=== PATIENT | female | born 1950 | race Caucasian/White ===

== ENCOUNTER 2018-10-02 11:25 | Observation (INO) ==
--- NOTE | 2018-10-02 11:52 | Emergency Department Note ---
Disposition Clinical Impression: Dog bite of left hand, Cellulitis of left hand Disposition: Admitted As Inpatient Condition: Good General Adult HPI - General Chief complaint: ED Animal Bite Stated complaint: Canine Bite Time Seen by Provider: 10/02/18 11:45 Source: patient - History of Present Illness Pain Scale: 7 - Related Data Home Medications Medication Instructions Recorded Confirmed Amlodipine Besylate 5 mg PO DAILY 10/02/18 10/02/18 Lisinopril [Zestril] 40 mg PO DAILY 10/02/18 10/02/18 Metoprolol Succinate [Kapspargo 100 mg PO DAILY 10/02/18 10/02/18 Sprinkle] RX: Amoxicillin/Clavulanate 1 tab PO BID 10/02/18 10/02/18 [Augmentin] RX: Furosemide [Lasix] 40 mg PO DAILY 10/02/18 10/02/18 RX: LORazepam [Ativan] 0.5 mg PO QAM 10/02/18 10/02/18 RX: LORazepam [Ativan] 1 mg PO QPM 10/02/18 10/02/18 RX: Mupirocin [Bactroban Oint] 1 appl TP BID 10/02/18 10/02/18 Allergies Allergy/AdvReac Type Severity Reaction Status Date / Time No Known Allergies Allergy Verified 10/02/18 11:42 Past Medical History - Past Medical History Medical history: Reports: hypertension, renal disease - Social History Smoking Status: Never smoker Smokeless Tobacco Status: No Alcohol use: Reports: none Physical Exam - General General appearance: alert Course Vital Signs Temperature 98 F 10/02/18 11:42 Pulse Rate 75 10/02/18 11:42 Respiratory Rate 20 10/02/18 11:42 Blood Pressure 168/94 10/02/18 11:42 O2 Sat by Pulse Oximetry 92 10/02/18 11:42 Temperature 98 F 10/02/18 11:47 Pulse Rate 73 10/02/18 13:04 Respiratory Rate 17 10/02/18 13:04 Blood Pressure 162/96 10/02/18 13:04 O2 Sat by Pulse Oximetry 96 10/02/18 13:04 Oxygen Delivery Oxygen Delivery Room Air Medical Decision Making - Lab Data Result diagrams: 10/02/18 12:20 10/02/18 12:20 Lab Results 12/02/18 12/02/18 Range/Units 12:20 12:20 WBC 7.6 (4.3-11.1) K/mcL RBC 4.82 (3.82-4.97) M/mcL Hgb 13.9 (11.5-15.4) g/dL Hct 43.1 (35.3-44.9) % MCV 89.4 (83.0-100.0) fL MCH 28.8 (28.0-33.3) pg MCHC 32.3 (31.6-35.5) g/dL RDW 13.6 (11.5-14.5) % Plt Count 232 (140-400) K/mcL MPV 9.6 (9.4-12.4) fL Immature Gran % 0.3 (0-4) % Seg Neutrophils % 76.6 % Lymphocytes % 13.2 % Monocytes % 8.3 % Eosinophils % 0.9 % Basophils % 0.7 % Neutrophils # 5.8 (1.6-8.9) K/mcL Lymphocytes # 1.0 (0.6-4.6) K/mcL Monocytes # 0.6 (0.0-1.3) K/mcL Eosinophils # 0.1 (0.0-0.6) K/mcL Basophils # 0.1 (0.0-0.2) K/mcL Sodium 139 (136-145) mEq/L Potassium 4.0 (3.5-5.1) mEq/L Chloride 107 (98-107) mEq/L Carbon Dioxide 22 L (23-29) mEq/L BUN 37 H (8-23) mg/dL Creatinine 1.82 H (0.60-1.20) mg/dL Est GFR ( Amer) 34 L (> 60) Est GFR (Non-Af Amer) 28 L (> 60) BUN/Creatinine Ratio 20 (6-26) Glucose 121 H (70-105) mg/dL Calculated Osmolality 298 (280-300) Calcium 9.6 (8.6-10.3) mg/dL Attestation Statement - Attestation Attestation: I examined this patient and my medical decision-making was reviewed with the Resident Physician. I agree with the documented findings, disposition and treatment plan as described except to the extent set forth below. [id number] time provided Patient arrives after a dog bite to her left hand sustained 5 days ago. She was seen at the urgent care and prescribed augmentic and then subsequently trimethoprim sulfamethoxazole. Symptoms persist. She does have a localized cellulitis from a bite wound to the dorsum of her left hand. She does not appear systemically ill
[2018-10-02] MEDS ORDERED: Ampicillin/Sulbactam 1,500 MG in 0.9 % Sodium Chloride Mini Bag 100 ML IVPB ONE (11:59)
--- NOTE | 2018-10-02 12:06 | Emergency Department Note ---
Disposition Clinical Impression: Cellulitis of left hand Dog bite of left hand Qualifiers: Encounter type: initial encounter Qualified Code(s): S61.452A - Open bite of left hand, initial encounter Disposition: Admitted As Inpatient Condition: Good Referrals: Zachary Oconnor DO [Primary Care Provider] - Forms: ED Satisfaction Letter Time of Disposition: 13:12 Animal Bite HPI - General Chief Complaint: ED Animal Bite Stated Complaint: Canine Bite Time Seen by Provider: 10/02/18 11:45 Source: patient Mode of arrival: ambulatory Limitations: no limitations Nursing Notes Reviewed: Yes Vital Signs Reviewed: Yes - History of Present Illness HPI Narrative: Patient is a 68-year-old female, otherwise healthy. She presents today due to concern for left hand dog bite. Patient states that she was by her own dog, immunizations for the dog was up-to-date. This occurred about a week ago. Patient states that she was seen 5 days ago at urgent care and was prescribed Augmentin for left hand dog bite. She states that she took this medication without any missed doses, despite this had worsening redness, worsening pain, worsening swelling. She does note that she also had x-ray imaging at that time that was negative for fracture in the hand. She was seen again approximately 2- 3 days ago and was prescribed an additional course of Bactrim to take in add ition to Augmentin. She states that despite taking this medication, she has continued worsening pain, redness, swelling. Denies any other systemic symptoms such as nausea, vomiting, fevers, abdominal pain, diarrhea, chest pain, shortness of breath. Denies any numbness, tingling, weakness. Patient is right-handed. - Related Data Home Medications Medication Instructions Recorded Confirmed Amlodipine Besylate 5 mg PO DAILY 10/02/18 10/02/18 Amoxicillin/Clavulanate [Augmentin] 1 tab PO BID 10/02/18 10/02/18 Furosemide [Lasix] 40 mg PO DAILY 10/02/18 10/02/18 LORazepam [Ativan] 0.5 mg PO QAM 10/02/18 10/02/18 LORazepam [Ativan] 1 mg PO QPM 10/02/18 10/02/18 Lisinopril [Zestril] 40 mg PO DAILY 10/02/18 10/02/18 Metoprolol Succinate [Kapspargo 100 mg PO DAILY 10/02/18 10/02/18 Sprinkle] Mupirocin [Bactroban Oint] 1 appl TP BID 10/02/18 10/02/18 Allergies Allergy/AdvReac Type Severity Reaction Status Date / Time No Known Allergies Allergy Verified 10/02/18 11:42 All systems ED: reviewed and negative except as stated. Constitutional: Denies: fever Cardiovascular: Denies: chest pain Respiratory: Denies: cough, dyspnea Gastrointestinal: Denies: abdominal pain, nausea, vomiting Genitourinary: Denies: urgency, dysuria Integumentary: Reports: lesions. Denies: rash Neurological: Denies: headache, weakness, numbness, paresthesias Past Medical History - Past Medical History Attestation: Yes The following information was validated with the patient. Source: patient Medical history: Reports: hypertension, renal disease - Social History Smoking Status: Never smoker Smokeless Tobacco Status: No Alcohol use: Reports: none Physical Exam - General Limitations: no limitations General appearance: alert - Head Head exam: atraumatic, normocephalic, normal inspection - Eye Eye exam: Present: normal appearance, PERRL, EOMI - ENT ENT exam: normal exam, normal oropharynx, mucous membranes moist - Neck Neck exam: Present: normal inspection, full ROM, trachea midline - Chest Chest inspection: Present: normal inspection, symmetric chest wall rise - Respiratory Respiratory exam: Present: normal lung sounds bilaterally - Cardiovascular Cardiovascular exam: Present: regular rate, normal rhythm, normal heart sounds - Abdominal Exam Abdominal exam: Present: soft, Non-Tender. Absent: tenderness, distention, guarding, rebound, rigidity - Extremities Exam Extremities exam: Present: full ROM, other (2 puncture wounds on the dorsal aspect of the left hand, 1 approximately 0.5 cm on the distal aspect of the fifth metacarpal, one near the proximal aspect of the second metacarpal measuring approximately 0.5 cm. Both have associated erythema. There is also additional swelling on entire aspect of the dorsal left hand with some mild erythema tracking up to the distal dorsal wrist. Still has full rang of motion of the digits, no fusiform swelling of the digits. Neurovascularly intact left upper extremity.). Absent: pedal edema - Neurological Exam Neurological exam: Present: alert, oriented X3. Absent: motor sensory deficit - Psychiatric Psychiatric exam: Present: normal affect, normal mood - Skin Skin exam: Present: warm, dry, other (see extremity section above ) Course Course Narrative: Currently concern for failed outpatient treatment despite Augmentin and Bactrim antibiotic regimen. CBC and BMP, blood cultures ordered. Patient was ordered Unasyn. I initially ordered vancomycin but patient refused to receive this medication due to history of chronic kidney disease. We replaced this medication with clindamycin. After blood work, will admit the patient for further care. Imaging reviewed from urgent care visit, patient does not have a fracture on x-ray imaging of the left hand. 13:11 no major lab abnormalities. Patient was accepted to hospitalist for admission. Of note, patient's tetanus was updated when she was seen at urgent care last week. Vital Signs Temperature 98 F 10/02/18 11:42 Pulse Rate 75 10/02/18 11:42 Respiratory Rate 20 10/02/18 11:42 Blood Pressure 168/94 10/02/18 11:42 O2 Sat by Pulse Oximetry 92 10/02/18 11:42 Temperature 98 F 10/02/18 11:47 Pulse Rate 73 10/02/18 13:04 Respiratory Rate 17 10/02/18 13:04 Blood Pressure 162/96 10/02/18 13:04 O2 Sat by Pulse Oximetry 96 10/02/18 13:04 Oxygen Delivery Oxygen Delivery Room Air Animal Bite - MDM Narrative Medical decision making narrative: Currently concern for failed outpatient treatment despite Augmentin and Bactrim antibiotic regimen. CBC and BMP, blood cultures ordered. Patient was ordered Unasyn. I initially ordered vancomycin but patient refused to receive this medication due to history of chronic kidney disease. We replaced this medication with clindamycin. After blood work, will admit the patient for further care. Imaging reviewed from urgent care visit, patient does not have a fracture on x-ray imaging of the left hand. 13:11 no major lab abnormalities. Patient was accepted to hospitalist for admission. Of note, patient's tetanus was updated when she was seen at urgent care last week. - Medical Records Medical records reviewed: Yes I reviewed the patient's medical records. - Lab Data Result diagrams: 10/02/18 12:20 10/02/18 12:20 Lab Results 10/02/18 10/02/18 Range/Units 12:20 12:20 WBC 7.6 (4.3-11.1) K/mcL RBC 4.82 (3.82-4.97) M/mcL Hgb 13.9 (11.5-15.4) g/dL Hct 43.1 (35.3-44.9) % MCV 89.4 (83.0-100.0) fL MCH 28.8 (28.0-33.3) pg MCHC 32.3 (31.6-35.5) g/dL RDW 13.6 (11.5-14.5) % Plt Count 232 (140-400) K/mcL MPV 9.6 (9.4-12.4) fL Immature Gran % 0.3 (0-4) % Seg Neutrophils % 76.6 % Lymphocytes % 13.2 % Monocytes % 8.3 % Eosinophils % 0.9 % Basophils % 0.7 % Neutrophils # 5.8 (1.6-8.9) K/mcL Lymphocytes # 1.0 (0.6-4.6) K/mcL Monocytes # 0.6 (0.0-1.3) K/mcL Eosinophils # 0.1 (0.0-0.6) K/mcL Basophils # 0.1 (0.0-0.2) K/mcL Sodium 139 (136-145) mEq/L Potassium 4.0 (3.5-5.1) mEq/L Chloride 107 (98-107) mEq/L Carbon Dioxide 22 L (23-29) mEq/L BUN 37 H (8-23) mg/dL Creatinine 1.82 H (0.60-1.20) mg/dL Est GFR ( Amer) 34 L (> 60) Est GFR (Non-Af Amer) 28 L (> 60) BUN/Creatinine Ratio 20 (6-26) Glucose 121 H (70-105) mg/dL Calculated Osmolality 298 (280-300) Calcium 9.6 (8.6-10.3) mg/dL - Radiology Data Radiology results reviewed: Yes I reviewed the patient's radiology results.
[2018-10-02] MEDS ORDERED: Clindamycin 900 MG/50 ML 900 MG/50 ML IV.SOLN IVPB ONE (12:23)
[2018-10-02 12:32] LABS: Basophils # 0.1 K/mcL (0.0-0.2); Basophils % 0.7 %; Eosinophils # 0.1 K/mcL (0.0-0.6); Eosinophils % 0.9 %; Hematocrit 43.1 % (35.3-44.9); Hemoglobin 13.9 g/dL (11.5-15.4); Immature Granulocytes % 0.3 % (0-4); Lymphocytes % 13.2 %; Mean Corpuscular HGB Conc 32.3 g/dL (31.6-35.5); Mean Corpuscular Hemoglobin 28.8 pg (28.0-33.3); Mean Corpuscular Volume 89.4 fL (83.0-100.0); Mean Platelet Volume 9.6 fL (9.4-12.4); Monocytes # 0.6 K/mcL (0.0-1.3); Monocytes % 8.3 %; Neutrophils # 5.8 K/mcL (1.6-8.9); Platelet Count 232 K/mcL (140-400); Red Blood Count 4.82 M/mcL (3.82-4.97); Red Cell Distribution Width 13.6 % (11.5-14.5); Segmented Neutrophils % 76.6 %
[2018-10-02 12:57] LABS: Calcium 9.6 mg/dL (8.6-10.3)
[2018-10-02] MEDS ORDERED: Naloxone 0.4 MG/ML INJ IVP PRN (13:35)
[2018-10-02] MEDS ORDERED: Vancomycin 1,750 MG in 0.9 % Sodium Chloride 250 ML IVPB SCH (14:00)
--- NOTE | 2018-10-02 16:32 | Internal Med History&Physical ---
Date of Encounter: 10/02/18 Time of Encounter: 16:24 Internal Medicine - H&P: HPI Chief complaint: pain, swelling and erythema of the left hand Plans for Post Hospital Care: Home History of present illness: Ms. Read is a 68 year old female PMH of CKD, and HTN patient presented to the ED due a week history of edema, pain and erythema in her left hand. Patient reports that about a week ago she was bitten her her dog in the left hand accidentally, for which she decided to go to an urgent care where she got a tetanus shot and was prescribed Augmentin, which she took for about three days with minimal relief of her symptoms. On Wednesday due to persistence of the pain and edema on her left hand she returned to the urgent care and was started on Bactrim and was told that if she did not see any improvement in the following days she should go to the ED, patient decided to come to the ED today because she continues to have stabbing/sharp 8/10 pain, edema, erythema and warmth in the left hand. She denies fever/chills, nausea, vomiting, abdominal pain or loose stool. Past Med Surg Social Fam HX - Past Medical History Medical history: hypertension, renal disease - Social History Smoking Status: Never smoker Smokeless Tobacco Status: No Alcohol use: none Internal Medicine - H&P: Meds Amlodipine Besylate 5 mg PO DAILY 10/02/18 [History] Amoxicillin/Clavulanate [Augmentin] 1 tab PO BID 10/02/18 [History] Furosemide [Lasix] 40 mg PO DAILY 10/02/18 [History] LORazepam [Ativan] 0.5 mg PO QAM 10/02/18 [History] LORazepam [Ativan] 1 mg PO QPM 10/02/18 [History] Lisinopril [Zestril] 40 mg PO DAILY 10/02/18 [History] Metoprolol Succinate [Kapspargo Sprinkle] 100 mg PO DAILY 10/02/18 [History] Mupirocin [Bactroban Oint] 1 appl TP BID 10/02/18 [History] Allergy/AdvReac Type Severity Reaction Status Date / Time No Known Allergies Allergy Verified 10/02/18 11:42 All Systems PM: A 10-system review of systems was performed and is negative for pertinent findings except as documented above in the HPI. - Constitutional Constitutional: no chills, no fever(s), no lethargy, no malaise, no weakness - EENT Eyes: no change in vision, no pain - Cardiovascular Cardiovascular ROS IM: no chest pain, no dyspnea on exertion, no edema, no lightheadedness, no palpitations, no paroxysmal nocturnal dyspnea - Respiratory Respiratory: no cough, no dyspnea, no wheezing - Gastrointestinal Gastrointestinal: no abdominal pain, no diarrhea, no loose stools, no melena, no nausea, no vomiting - Genitourinary Genitourinary: no urinary frequency, no urinary hesitancy, no urinary urgency - Musculoskeletal Musculoskeletal ROS IM: limited range of motion (left hand due to pain and swelling. ), no joint swelling, no numbness, no stiffness - Integumentary Integumentary IM: erythema (left hand) - Neurological Neurological ROS: no abnormal gait, no headache(s), no weakness - Psychiatric Psychiatric: no anxiety - Endocrine Endocrine IM: no heat intolerance, no polydipsia, no polyphagia, no polyuria - Hematologic/Lymphatic Hematologic/Lymphatic: no lymphadenopathy - Allergic/Immunologic Allergic/Immunologic: no wheezing Additional comments: Rest of the review of system negative. - Constitutional Vitals: Temp Pulse Resp BP Pulse Ox 97.5 F L 73 18 121/76 90 10/02/18 14:51 10/02/18 14:51 10/02/18 14:51 10/02/18 14:51 10/02/18 14:51 Exam: Vitals: Reviwed. General: Alert and oriented x4. In mild distress due to pain in the left hand Skin: erythema, edema and tenderness to palpation in the left hand HEENT: EOM, pupils equal, round and reactive. Cardiovascular: RRR, Normal S1 & S2, no rubs, murmurs or gallops. No JVD. Lungs: Decreased breath sounds in the right chest, good air entry in the left lung, no wheezes or crackles b/l. Abdomen: Obese, Soft, non-tender, no rigidity. Extremities: No deformity, no edema or tenderness, no joint swelling or clubbing. Neurological: Normal cognition and motor skills. Rest of the physical exam is non contributory Internal Med - H&P Results - Labs CBC & Chem 7: 10/02/18 12:20 10/02/18 12:20 Labs: Short CBC 10/02/18 Range/Units 12:20 WBC 7.6 (4.3-11.1) K/mcL Hgb 13.9 (11.5-15.4) g/dL Hct 43.1 (35.3-44.9) % Plt Count 232 (140-400) K/mcL Neutrophils # 5.8 (1.6-8.9) K/mcL BMP 10/02/18 12:20 Sodium 139 Potassium 4.0 Chloride 107 Carbon Dioxide 22 L BUN 37 H Creatinine 1.82 H Glucose 121 H Calcium 9.6 - Assessment and plan (1) Cellulitis of left hand Current Visit: Yes Status: Acute Assessment and plan: erythema, edema and tenderness of the left hand with decreased ROM will start patient on clindamycin 600mg/IV Q8HRs, plus ceftriaxone 1gm/IV daily keep extremity elevated x-ray of the left hand 2 views tramadol 50mg/PO Q6HR for pain control draw a map around the erythema to monitor improvement/resolution (2) CKD (chronic kidney disease) stage 4, GFR 15-29 ml/min Current Visit: Yes Status: Chronic Assessment and plan: Will resume furosemide 40mg/PO daily. monitor kidney function avoid nephrotoxic medications (3) HTN (hypertension) Current Visit: Yes Status: Chronic Assessment and plan: will resume home medications. On Metoprolol 100mg/PO daily and furosemide 40mg/PO daily hold lisinopril Qualifiers: Hypertension type: unspecified Qualified Code(s): I10 - Essential (primary) hypertension (4) Dog bite of left hand Current Visit: Yes Status: Chronic Assessment and plan: patient reported getting a tetanus shot the day the bite happened. Qualifiers: Encounter type: initial encounter Qualified Code(s): S61.452A - Open bite of left hand, initial encounter; W54.0XXA - Bitten by dog, initial encounter - Time Spent With Patient Total time spent is greater than 50% in coordination of care (as documented) at patient's floor/unit and/or counseling patient: Greater than 35 minutes (40)
[2018-10-02] MEDS: traMADol 50 MG TABLET PO PRN (17:28)
[2018-10-02] MEDS: Metoprolol XL (24 HR) Succ 50 MG TAB.ER.24H PO SCH (17:29)
[2018-10-02] MEDS: Clindamycin 600 MG/50 ML 600 MG/50 ML IV.SOLN IVPB SCH (23:25)
[2018-10-03] MEDS: traMADol 50 MG TABLET PO PRN ×2 (03:29→16:39)
[2018-10-03 05:06] LABS: Basophils # 0.1 K/mcL (0.0-0.2); Basophils % 0.8 %; Eosinophils # 0.2 K/mcL (0.0-0.6); Eosinophils % 2.4 %; Hematocrit 40.7 % (35.3-44.9); Immature Granulocytes % 0.3 % (0-4); Lymphocytes # 1.2 K/mcL (0.6-4.6); Lymphocytes % 15.1 %; Mean Corpuscular HGB Conc 31.9 g/dL (31.6-35.5); Mean Corpuscular Hemoglobin 28.8 pg (28.0-33.3); Mean Platelet Volume 9.8 fL (9.4-12.4); Monocytes # 0.8 K/mcL (0.0-1.3); Monocytes % 9.9 %; Neutrophils # 5.4 K/mcL (1.6-8.9); Platelet Count 230 K/mcL (140-400); Red Blood Count 4.52 M/mcL (3.82-4.97); Red Cell Distribution Width 13.9 % (11.5-14.5); Segmented Neutrophils % 71.5 %
[2018-10-03 05:25] LABS: Calcium 9.2 mg/dL (8.6-10.3); Phosphorous 3.4 mg/dL (2.7-4.5); Potassium 4.1 mEq/L (3.5-5.1)
[2018-10-03] MEDS: Clindamycin 600 MG/50 ML 600 MG/50 ML IV.SOLN IVPB SCH ×2 (08:03→15:47)
[2018-10-03] MEDS ORDERED: Furosemide 40 MG/4 ML VIAL IVP SCH (09:00)
[2018-10-03] MEDS: Metoprolol XL (24 HR) Succ 50 MG TAB.ER.24H PO SCH (09:14)
[2018-10-03] MEDS: cefTRIAXone 1,000 MG in Water for inj. (sterile) 20 ML 10 ML IVP SCH (09:15)
--- NOTE | 2018-10-03 12:14 | Internal Med Progress Note ---
Hospitalist Progress Note - Encounter Date of Encounter: 10/03/18 Time of Encounter: 12:11 - Subjective Interval History: I have seen and evaluated the patient at bedside. she reports worsening pain in the left hand, swelling has been improving. denies loose stool, nausea or vomiting. - Exam Vitals: Temp Pulse Resp BP Pulse Ox 98.5 F 67 16 129/80 93 10/03/18 06:52 10/03/18 06:52 10/03/18 06:52 10/03/18 06:52 10/03/18 06:52 Exam: Vitals: Reviewed. General: Alert and oriented x4. In mild distress due to pain in the left hand Skin: erythema, edema and tenderness to palpation in the left hand/improving Cardiovascular: RRR, Normal S1 & S2, no rubs, murmurs or gallops. No JVD. Lungs: Decreased breath sounds in the right chest, good air entry in the left lung, no wheezes or crackles b/l. Abdomen: Obese, Soft, non-tender, no rigidity. NABS in all 4 quadrants Extremities: No edema. Neurological: Normal cognition. CN II-XII intact Psych: Affect appropriate. Rest of the physical exam is non contributory - Assessment and Plan (1) Cellulitis of left hand Current Visit: Yes Status: Acute Assessment and Plan: erythema and edema have improved. but patient continues to refer pain. continue IV ceftriaxone 1gm/IV daily and cipro 600mg/IV Q8HRs pain controlled with tramadol 50mg/PO Daily keep hand elevated. (2) CKD (chronic kidney disease) stage 4, GFR 15-29 ml/min Current Visit: Yes Status: Chronic Assessment and Plan: slight worsening in kidney function. hold furosemide and linopril. will re- assess kidney function in the morning. (3) HTN (hypertension) Current Visit: Yes Status: Chronic Assessment and Plan: BP has been well controlled. WIll resume amlodipine home dose. continue metoprolol 100mg/PO daily. (4) Dog bite of left hand Current Visit: Yes Status: Chronic Assessment and Plan: tetanus shot given in the outpatient settings DVT Prophylaxis: Heparin 5000 units subcutaneous twice a day. - Summary of Assessment and Plan Summary of Assessment and Plan: Patient to remain in the hospital for 24 more hours to continue IV antibiotics. Potential discharge tomorrow. - Time Spent with Patient Total time spent is greater than 50% in coordination of care (as documented) at patient's floor/unit and/or counseling patient: Greater than 35 minutes (40) Plan of Care Discussed with: patient (and the nurse.) Internal Medicine: Result - Labs CBC & Chem 7: 10/03/18 04:26 10/03/18 04:26 Labs: Short CBC 10/02/18 10/03/18 Range/Units 12:20 04:26 WBC 7.6 7.6 (4.3-11.1) K/mcL Hgb 13.9 13.0 (11.5-15.4) g/dL Hct 43.1 40.7 (35.3-44.9) % Plt Count 232 230 (140-400) K/mcL Neutrophils # 5.8 5.4 (1.6-8.9) K/mcL BMP 10/02/18 10/03/18 12:20 04:26 Sodium 139 140 Potassium 4.0 4.1 Chloride 107 108 H Carbon Dioxide 22 L 23 BUN 37 H 40 H Creatinine 1.82 H 2.06 H Glucose 121 H 106 H Calcium 9.6 9.2 - Impressions Impressions Chest X-Ray 10/02/18 16:36 IMPRESSION: Chronic appearing elevation of the right hemidiaphragm in consequent atelectasis. No change compared to prior of 06/16/2016. D/ / Jose L Zarco / Jose L Zarco Interpreting Provider: Jose L Zarco Consult Discharge Plan - Plan Referrals: Zachary Oconnor DO [Primary Care Provider] - (3) HTN (hypertension) Qualifiers: Hypertension type: unspecified Qualified Code(s): I10 - Essential (primary) hypertension (4) Dog bite of left hand Qualifiers: Encounter type: initial encounter Qualified Code(s): S61.452A - Open bite of left hand, initial encounter; W54.0XXA - Bitten by dog, initial encounter
[2018-10-03] MEDS: *HR* Heparin 5,000 UNIT/ML VIAL SQ SCH (18:18)
[2018-10-04] MEDS: Clindamycin 600 MG/50 ML 600 MG/50 ML IV.SOLN IVPB SCH ×2 (00:02→08:18)
[2018-10-04] MEDS: *HR* Heparin 5,000 UNIT/ML VIAL SQ SCH (06:01)
[2018-10-04 08:01] VITALS: BP 114/73
[2018-10-04] MEDS: Metoprolol XL (24 HR) Succ 50 MG TAB.ER.24H PO SCH (08:15)
[2018-10-04] MEDS: cefTRIAXone 1,000 MG in Water for inj. (sterile) 20 ML 10 ML IVP SCH (08:15)
[2018-10-04] MEDS ORDERED: amLODIPine 5 MG TABLET PO SCH (09:00)
--- NOTE | 2018-10-04 09:31 | Discharge Summary ---
- NOTES TO OUTPATIENT PROVIDER Notes to Outpatient Provider: Follow-up with your primary care physician within a week of hospital discharge. Orders not resulted at time of discharge: Pending orders 10/02/18 12:20 Culture,Blood [BC] Stat 10/03/18 16:30 Culture,Wound [RM] Stat Date of Encounter: 10/04/18 Time of Encounter: 09:26 - Discharge Diagnosis (1) Cellulitis of left hand Priority: Primary Status: Acute (2) CKD (chronic kidney disease) stage 4, GFR 15-29 ml/min Priority: Secondary Status: Chronic (3) HTN (hypertension) Priority: Secondary Status: Chronic Qualifiers: Hypertension type: unspecified Qualified Code(s): I10 - Essential (primary) hypertension (4) Dog bite of left hand Priority: Secondary Status: Chronic Qualifiers: Encounter type: initial encounter Qualified Code(s): S61.452A - Open bite of left hand, initial encounter; W54.0XXA - Bitten by dog, initial encounter (5) Abscess of hand, left Priority: Secondary Status: Resolved Assessment and Plan: s/p I&D Hospital course: Ms. Read is a 68 year old female PMH of CKD, and HTN patient presented to the ED due a week history of edema, pain and erythema in her left hand following a dog bite. Patient treated with oral antibiotics in the the outpatient settings but the pain and swelling did not improve. Patient admitted to the hospital due to cellulitis that has failed outpatient oral treatment. Patient managed with broad spectrum IV antibiotics. patient was found to have a small abscess in the post left hand at the anatomical snuff-box which was drained and fluids sent for culture. X-ray of the hand: Soft tissue swelling. No acute osseous abnormality or radiopaque foreign body. Patient swelling and pain has almost completely resolved. Patient is hemodynamically stable to be discharged home on oral antibiotics. Recommended to follow-up with her primary care physician within a week of hospital discharge. - Time Spent with Patient Total time spent providing and/or coordinating discharge services: Greater than 30 minutes (35) - Discharge Medications Prescriptions: Clindamycin HCl 300 mg PO Q8H 8 Days #24 capsule Home Medications: Amlodipine Besylate 5 mg PO DAILY 10/02/18 [History] Furosemide [Lasix] 40 mg PO DAILY 10/02/18 [History] LORazepam [Ativan] 0.5 mg PO QAM 10/02/18 [History] LORazepam [Ativan] 1 mg PO QPM 10/02/18 [History] Lisinopril [Zestril] 40 mg PO DAILY 10/02/18 [History] Metoprolol Succinate [[place] Sprinkle] 100 mg PO DAILY 10/02/18 [History] Mupirocin [Bactroban Oint] 1 appl TP BID 10/02/18 [History] Amoxicillin/Clavulanate [Augmentin] 1 tab PO BID 4 Days #8 tab 10/04/18 [Rx] Clindamycin HCl 300 mg PO Q8H 8 Days #24 capsule 10/04/18 [Rx] Allergies/Adverse Reactions: Allergy/AdvReac Type Severity Reaction Status Date / Time No Known Allergies Allergy Verified 10/02/18 11:42 Date of admission: 10/02/18 13:18 Primary care physician: Zachary Oconnor - Constitutional Vitals: Temp Pulse Resp BP Pulse Ox 97.9 F 64 16 114/73 94 10/04/18 08:00 10/04/18 08:00 10/04/18 08:00 10/04/18 08:00 10/04/18 08:00 Exam: Vitals: Reviewed. General: Alert and oriented x4. In mild distress due to pain in the left hand Skin: erythema, edema and tenderness to palpation in the left hand almost completely resolved. Cardiovascular: RRR, Normal S1 & S2, no rubs, murmurs or gallops. No JVD. Lungs: Decreased breath sounds in the right chest, good air entry in the left lung, no wheezes or crackles b/l. Abdomen: Obese, Soft, non-tender, no rigidity. NABS in all 4 quadrants Extremities: No edema. Neurological: Normal cognition. CN II-XII intact Psych: Affect appropriate. Rest of the physical exam is non contributory - Patient Status Disposition: Home, Self-Care Condition: Good Functional capacity at discharge: independent ambulation Overall status at discharge: patient is back to baseline - Discharge Instructions Follow Up With: Zachary Oconnor DO [Primary Care Provider] - - Diet and Activity Activity: resume usual activities as tolerated Diet: low salt diet
== END 2018-10-04 10:42 | disposition home or self-care (01) ==
LOC: EMEROOARM 11:25 → 3ANU 13:18 → SUATTDRO 13:18 → INTOOBSV 13:18 → 3ANU 14:05
PROVIDERS: ADMIT General Practice; ATTEND Internal Medicine

== ENCOUNTER 2022-08-12 11:43 | Inpatient (IN) ==
[2022-08-12] MEDS ORDERED: Ipratropium/Albuterol Neb 3 ML IH ONE (12:22)
[2022-08-12] MEDS ORDERED: Ipratropium/Albuterol Neb 3 ML ONE (12:22)
[2022-08-12 13:29] LABS: VBG HCO3 31 mEq/L (21-27); VBG PCO2 65 mmHg (41-51); VBG PH 7.28 pH Units (7.32-7.42); VBG PO2 59 mmHg (25-50)
[2022-08-12 13:30] LABS: Basophils # 0.1 K/mcL (0.0-0.2); Basophils % 0.7 %; Eosinophils # 0.2 K/mcL (0.0-0.6); Eosinophils % 1.8 %; Hematocrit 49.6 % (35.3-44.9); Hemoglobin 15.3 g/dL (11.5-15.4); Immature Granulocytes % 0.4 % (0-4); Lymphocytes # 0.5 K/mcL (0.6-4.6); Lymphocytes % 4.9 %; Mean Corpuscular HGB Conc 30.8 g/dL (31.6-35.5); Mean Corpuscular Hemoglobin 30.3 pg (28.0-33.3); Mean Corpuscular Volume 98.2 fL (83.0-100.0); Mean Platelet Volume 9.5 fL (9.4-12.4); Monocytes # 0.6 K/mcL (0.0-1.3); Monocytes % 5.8 %; Neutrophils # 8.1 K/mcL (1.6-8.9); Nucleated Red Blood Cells 0.2 /100 WBC (0); Platelet Count 243 K/mcL (140-400); Red Blood Count 5.05 M/mcL (3.82-4.97); Red Cell Distribution Width 16.1 % (11.5-14.5); Segmented Neutrophils % 86.4 %; White Blood Count 9.4 K/mcL (4.3-11.1)
[2022-08-12] MEDS ORDERED: Iopamidol - 370 500 ML MLS IVP ONE (13:46)
[2022-08-12 13:54] LABS: BUN/Creatinine Ratio 19 (6-26); Blood Urea Nitrogen 34 mg/dL (8-23); Calcium 9.4 mg/dL (8.6-10.3); Carbon Dioxide 28 mEq/L (23-29); Chloride 106 mEq/L (98-107); Glucose 114 mg/dL (70-105); Osmolality,Calculated 304 (280-300); Potassium 3.7 mEq/L (3.5-5.1); Sodium 143 mEq/L (136-145); Troponin I < 0.03 ng/mL (< 0.04)
[2022-08-12] MEDS ORDERED: Ondansetron 4 MG/2 ML VIAL IVP PRN (17:34)
[2022-08-12] MEDS ORDERED: Naloxone 0.4 MG/ML INJ IVP PRN (17:34)
[2022-08-12] MEDS ORDERED: Ipratropium/Albuterol Neb 3 ML IH PRN (17:36)
[2022-08-12] MEDS ORDERED: *HR* Heparin 5,000 UNIT/ML VIAL IVP ONE (17:37)
[2022-08-12] MEDS ORDERED: *HR* Heparin 5,000 UNIT/ML VIAL IVP PRN (17:37)
[2022-08-12] MEDS ORDERED: Furosemide 40 MG/4 ML VIAL IVP ONE (17:38)
[2022-08-12] MEDS: Heparin 25,000UNIT/250ML 1/2NS 25,000 UNIT/250 ML IV.SOLN IVC SCH (18:15)
[2022-08-12 19:00] LABS: Prothrombin Time 11.5 Seconds (9.4-12.1)
[2022-08-12 20:35] LABS: Hematocrit 48.9 % (35.3-44.9); Hemoglobin 15.1 g/dL (11.5-15.4); Mean Corpuscular HGB Conc 30.9 g/dL (31.6-35.5); Mean Corpuscular Volume 100.4 fL (83.0-100.0); Mean Platelet Volume 10.1 fL (9.4-12.4); Platelet Count 228 K/mcL (140-400); Red Blood Count 4.87 M/mcL (3.82-4.97); Red Cell Distribution Width 16.2 % (11.5-14.5); White Blood Count 10.1 K/mcL (4.3-11.1)
[2022-08-12] MEDS ORDERED: *HR* Metoprolol 5 MG/5 ML VIAL IVP ONE (21:51)
[2022-08-12] MEDS: Acetaminophen 325 MG TABLET PO PRN (22:14)
[2022-08-12 22:29] LABS: Bacteria,Urine Few per hpf (None-Few); Bilirubin,Urine Negative (Negative); Blood,Urine Negative (Negative); Clarity,Urine Clear (Clear); Color,Urine Light-Yellow (Yellow); Glucose,Urine (UA) Normal (Normal); Hyaline Casts,Urine Moderate per lpf (None Seen); Ketones,Urine Negative (Negative); Leukocyte Esterase,Urine Small (Negative); Mucus,Urine Few per lpf (None-Few); Nitrite,Urine Negative (Negative); Protein,Urine 200 mg/dL (Neg-Trace); Specific Gravity,Urine 1.023 (1.010-1.025); Squamous Epithelial Cell,Urine Moderate per hpf (None-Few); Urobilinogen,Urine Normal (Normal)
[2022-08-13] MEDS ORDERED: *HR* Metoprolol 5 MG/5 ML VIAL IVP ONE (01:30)
[2022-08-13 04:42] LABS: Basophils # 0.1 K/mcL (0.0-0.2); Basophils % 0.8 %; Eosinophils # 0.1 K/mcL (0.0-0.6); Eosinophils % 1.1 %; Hematocrit 48.8 % (35.3-44.9); Hemoglobin 14.5 g/dL (11.5-15.4); Immature Granulocytes % 0.4 % (0-4); Lymphocytes # 0.5 K/mcL (0.6-4.6); Lymphocytes % 4.7 %; Mean Corpuscular HGB Conc 29.7 g/dL (31.6-35.5); Mean Corpuscular Hemoglobin 30.3 pg (28.0-33.3); Mean Corpuscular Volume 101.9 fL (83.0-100.0); Mean Platelet Volume 10.2 fL (9.4-12.4); Monocytes # 0.8 K/mcL (0.0-1.3); Monocytes % 8.2 %; Neutrophils # 8.5 K/mcL (1.6-8.9); Platelet Count 207 K/mcL (140-400); Red Blood Count 4.79 M/mcL (3.82-4.97); Segmented Neutrophils % 84.8 %; White Blood Count 10.1 K/mcL (4.3-11.1)
[2022-08-13 05:08] LABS: Alanine Aminotransferase 16 Units/L (7-52); Albumin 3.5 g/dL (3.5-5.7); Albumin/Globulin Ratio 1.4 (1.1-2.2); Alkaline Phosphatase 108 Units/L (34-104); Aspartate Amino Transferase 18 Units/L (13-39); BUN/Creatinine Ratio 19 (6-26); Bilirubin,Total 0.6 mg/dL (0.3-1.0); Blood Urea Nitrogen 36 mg/dL (8-23); Carbon Dioxide 25 mEq/L (23-29); Chloride 109 mEq/L (98-107); Globulin 2.5 g/dL (2.4-3.5); Glucose 99 mg/dL (70-105); Magnesium 2.1 mg/dL (1.6-2.6); Osmolality,Calculated 306 (280-300); Potassium 3.8 mEq/L (3.5-5.1); Sodium 144 mEq/L (136-145); Troponin I < 0.03 ng/mL (< 0.04)
[2022-08-13 05:20] LABS: Thyroid Stimulating Hormone 0.993 mcIU/mL (0.340-5.600)
[2022-08-13] MEDS: Acetaminophen 325 MG TABLET PO PRN (08:19)
[2022-08-13 08:46] LABS: Adenovirus Not Detected (Not Detect); Bordetella Pertussis Not Detected (Not Detect); Chlamydophila pneumoniae Not Detected (Not Detect); Coronavirus 229E Not Detected (Not Detect); Coronavirus HKU1 Not Detected (Not Detect); Coronavirus NL63 Not Detected (Not Detect); Coronavirus OC43 Not Detected (Not Detect); Human Metapneumovirus Not Detected (Not Detect); Human Rhinovirus/Enterovirus Not Detected (Not Detect); Influenza A Subtype 2009 H1 Not Detected (Not Detect); Influenza B Not Detected (Not Detect); Mycoplasma pneumoniae Not Detected (Not Detect); Parainfluenza Virus 1 Not Detected (Not Detect); Parainfluenza Virus 2 Not Detected (Not Detect); Parainfluenza Virus 3 Not Detected (Not Detect); Parainfluenza Virus 4 Not Detected (Not Detect); Respiratory Syncytial Virus Not Detected (Not Detect); SARS-CoV-2 Not Detected (Not Detect)
[2022-08-13] MEDS ORDERED: amLODIPine 5 MG TABLET PO SCH (09:00)
[2022-08-13] MEDS ORDERED: Metoprolol XL (24 HR) Succ 50 MG TAB.ER.24H PO SCH (09:00)
[2022-08-13] MEDS: Piperacillin/Tazobactam 3.375 GM in 0.9 % Sodium Chloride Mini Bag 100 ML IVPB SCH ×2 (09:43→15:01)
[2022-08-13] MEDS: Doxycycline 100 MG in 0.9 % Sodium Chloride Mini Bag 100 ML IVPB SCH ×2 (09:51→16:50)
[2022-08-13] MEDS ORDERED: Chlorothiazide Sodium 500 MG VIAL IVP ONE (10:39)
[2022-08-13] MEDS ORDERED: Furosemide 40 MG/4 ML VIAL IVP SCH (10:45)
[2022-08-13] MEDS: *HR* LORazepam 1 MG TABLET PO PRN ×2 (11:21→20:46)
[2022-08-13 11:29] LABS: ABG Base Excess -1 mEq/L (-2 to 3); ABG HCO3 26 mEq/L (21-27); ABG Oxygen Saturation 89 % (95-98); ABG PCO2 51 mmHg (35-45); ABG PH 7.32 pH Units (7.32-7.45); ABG PO2 63 mmHg (85-104); ABG TCO2 28 mEq/L (20-26)
[2022-08-13 11:55] LABS: Creatinine,Urine 105 mg/dL; Microalbumin,Urine > 1350 mg/L; Protein/Creatinine Ratio,Urine 3.85 mg/mg (0.00-0.20)
[2022-08-13] MEDS: Furosemide 240 MG in 0.9 % Sodium Chloride 96 ML IVC SCH (13:16)
[2022-08-13] MEDS: Gabapentin 100 MG CAPSULE PO SCH ×2 (13:17→20:46)
[2022-08-13] MEDS: hydrALAZINE 25 MG TABLET PO SCH ×2 (16:51→23:58)
[2022-08-13] MEDS: Heparin 25,000UNIT/250ML 1/2NS 25,000 UNIT/250 ML IV.SOLN IVC SCH (16:51)
[2022-08-13] MEDS ORDERED: Potassium Chloride Elixir 20 MEQ/15 ML UDC PO ONE (17:10)
[2022-08-13] MEDS: Metoprolol XL (24 HR) Succ 50 MG TAB.ER.24H PO SCH (20:46)
[2022-08-14] MEDS: Piperacillin/Tazobactam 3.375 GM in 0.9 % Sodium Chloride Mini Bag 100 ML IVPB SCH ×3 (00:07→15:25)
[2022-08-14 03:59] LABS: ABG Base Excess 3 mEq/L (-2 to 3); ABG HCO3 31 mEq/L (21-27); ABG Oxygen Saturation 90 % (95-98); ABG PCO2 59 mmHg (35-45); ABG PH 7.33 pH Units (7.32-7.45); ABG PO2 64 mmHg (85-104); ABG TCO2 33 mEq/L (20-26); Blood Gas Modality ST
[2022-08-14] MEDS: Doxycycline 100 MG in 0.9 % Sodium Chloride Mini Bag 100 ML IVPB SCH ×2 (05:35→17:33)
[2022-08-14 06:31] LABS: Basophils # 0.1 K/mcL (0.0-0.2); Basophils % 0.8 %; Eosinophils # 0.4 K/mcL (0.0-0.6); Eosinophils % 4.9 %; Hematocrit 48.5 % (35.3-44.9); Hemoglobin 14.5 g/dL (11.5-15.4); Immature Granulocytes % 0.2 % (0-4); Lymphocytes # 0.5 K/mcL (0.6-4.6); Mean Corpuscular HGB Conc 29.9 g/dL (31.6-35.5); Mean Corpuscular Hemoglobin 31.5 pg (28.0-33.3); Mean Corpuscular Volume 105.4 fL (83.0-100.0); Mean Platelet Volume 9.7 fL (9.4-12.4); Monocytes # 0.7 K/mcL (0.0-1.3); Monocytes % 8.4 %; Neutrophils # 6.6 K/mcL (1.6-8.9); Nucleated Red Blood Cells 0.2 /100 WBC (0); Platelet Count 183 K/mcL (140-400); Red Cell Distribution Width 16.5 % (11.5-14.5); Segmented Neutrophils % 79.7 %; White Blood Count 8.3 K/mcL (4.3-11.1)
[2022-08-14 06:49] LABS: Calcium 9.2 mg/dL (8.6-10.3); Potassium 3.7 mEq/L (3.5-5.1)
[2022-08-14] MEDS: Metoprolol XL (24 HR) Succ 50 MG TAB.ER.24H PO SCH ×2 (08:05→20:12)
[2022-08-14] MEDS: Cholecalciferol (D-3) 1,000 UNIT (25MCG) TABLET PO SCH (08:05)
[2022-08-14] MEDS: Aspirin Enteric Coated 81 MG Tablet PO SCH (08:05)
[2022-08-14] MEDS: Gabapentin 100 MG CAPSULE PO SCH ×2 (08:05→20:09)
[2022-08-14] MEDS: hydrALAZINE 25 MG TABLET PO SCH ×2 (08:05→15:26)
[2022-08-14] MEDS: Multivit/Ca/Min/Fe/FA 1 TAB TABLET PO SCH (08:05)
[2022-08-14] MEDS: calcitrioL 0.25 MCG CAPSULE PO SCH (08:05)
[2022-08-14] MEDS: *HR* LORazepam 1 MG TABLET PO PRN ×2 (08:06→20:11)
[2022-08-14] MEDS ORDERED: NON-FORMULARY MEDICATION 1 EACH EACH (Ascorbic Acid/Vitamin E/Biotin [Hair Skin Nails-Biot PO SCH (09:00)
[2022-08-14] MEDS: Furosemide 240 MG in 0.9 % Sodium Chloride 96 ML IVC SCH (11:52)
[2022-08-14] MEDS ORDERED: Albumin 25% 25gram/100mL 25 GM/100 ML IV.SOLN IVPB ONE (12:42)
[2022-08-14] MEDS: Heparin 25,000UNIT/250ML 1/2NS 25,000 UNIT/250 ML IV.SOLN IVC SCH (17:39)
[2022-08-14] MEDS ORDERED: Metoprolol XL (24 HR) Succ 50 MG TAB.ER.24H PO SCH (21:00)
[2022-08-14 23:46] LABS: ABG Base Excess 4 mEq/L (-2 to 3); ABG HCO3 33 mEq/L (21-27); ABG Oxygen Saturation 94 % (95-98); ABG PCO2 66 mmHg (35-45); ABG PO2 81 mmHg (85-104); ABG TCO2 35 mEq/L (20-26); Blood Gas VT 450 cc
[2022-08-15] MEDS: hydrALAZINE 25 MG TABLET PO SCH ×4 (00:09→23:25)
[2022-08-15] MEDS: Piperacillin/Tazobactam 3.375 GM in 0.9 % Sodium Chloride Mini Bag 100 ML IVPB SCH ×4 (00:24→23:25)
[2022-08-15 02:52] LABS: Basophils # 0.1 K/mcL (0.0-0.2); Basophils % 0.6 %; Eosinophils # 0.4 K/mcL (0.0-0.6); Eosinophils % 3.5 %; Hematocrit 45.3 % (35.3-44.9); Hemoglobin 13.6 g/dL (11.5-15.4); Immature Granulocytes % 0.3 % (0-4); Lymphocytes # 0.4 K/mcL (0.6-4.6); Lymphocytes % 3.8 %; Mean Corpuscular Hemoglobin 30.8 pg (28.0-33.3); Mean Corpuscular Volume 102.5 fL (83.0-100.0); Mean Platelet Volume 9.8 fL (9.4-12.4); Monocytes % 9.9 %; Neutrophils # 8.3 K/mcL (1.6-8.9); Platelet Count 202 K/mcL (140-400); Red Blood Count 4.42 M/mcL (3.82-4.97); Red Cell Distribution Width 16.2 % (11.5-14.5); Segmented Neutrophils % 81.9 %; White Blood Count 10.1 K/mcL (4.3-11.1)
[2022-08-15 03:06] LABS: Calcium 9.4 mg/dL (8.6-10.3); Potassium 3.6 mEq/L (3.5-5.1)
[2022-08-15] MEDS: Doxycycline 100 MG in 0.9 % Sodium Chloride Mini Bag 100 ML IVPB SCH ×2 (04:34→18:24)
[2022-08-15] MEDS: Gabapentin 100 MG CAPSULE PO SCH ×2 (08:39→19:50)
[2022-08-15] MEDS: Aspirin Enteric Coated 81 MG Tablet PO SCH (08:39)
[2022-08-15] MEDS: Multivit/Ca/Min/Fe/FA 1 TAB TABLET PO SCH (08:39)
[2022-08-15] MEDS: calcitrioL 0.25 MCG CAPSULE PO SCH (08:39)
[2022-08-15] MEDS: Metoprolol XL (24 HR) Succ 50 MG TAB.ER.24H PO SCH ×2 (08:39→19:50)
[2022-08-15] MEDS: Cholecalciferol (D-3) 1,000 UNIT (25MCG) TABLET PO SCH (08:39)
[2022-08-15] MEDS: *HR* LORazepam 1 MG TABLET PO PRN ×2 (08:39→19:50)
[2022-08-15] MEDS ORDERED: Furosemide 40 MG/4 ML VIAL IVP ONE ×2 (09:34→20:01)
[2022-08-15] MEDS ORDERED: Furosemide 80 MG in 0.9 % Sodium Chloride 50 ML IVPB ONE ×2 (09:41→20:15)
[2022-08-15] MEDS ORDERED: Albumin 25% 25gram/100mL 25 GM/100 ML IV.SOLN IVPB ONE ×2 (13:41→20:00)
[2022-08-15] MEDS: *HR* Heparin 5,000 UNIT/ML VIAL IVP PRN (13:49)
[2022-08-15] MEDS: Heparin 25,000UNIT/250ML 1/2NS 25,000 UNIT/250 ML IV.SOLN IVC SCH (16:57)
[2022-08-16 02:21] LABS: Basophils # 0.1 K/mcL (0.0-0.2); Basophils % 0.5 %; Eosinophils # 0.2 K/mcL (0.0-0.6); Eosinophils % 1.7 %; Hematocrit 42.9 % (35.3-44.9); Hemoglobin 13.1 g/dL (11.5-15.4); Immature Granulocytes % 0.4 % (0-4); Lymphocytes # 0.3 K/mcL (0.6-4.6); Lymphocytes % 2.8 %; Mean Corpuscular HGB Conc 30.5 g/dL (31.6-35.5); Mean Corpuscular Hemoglobin 31.1 pg (28.0-33.3); Mean Corpuscular Volume 101.9 fL (83.0-100.0); Mean Platelet Volume 9.9 fL (9.4-12.4); Monocytes % 8.9 %; Neutrophils # 9.7 K/mcL (1.6-8.9); Platelet Count 165 K/mcL (140-400); Red Blood Count 4.21 M/mcL (3.82-4.97); Red Cell Distribution Width 16.7 % (11.5-14.5); Segmented Neutrophils % 85.7 %; White Blood Count 11.3 K/mcL (4.3-11.1)
[2022-08-16 02:37] LABS: Potassium 3.8 mEq/L (3.5-5.1)
[2022-08-16 02:38] LABS: Calcium 9.4 mg/dL (8.6-10.3)
[2022-08-16] MEDS: Doxycycline 100 MG in 0.9 % Sodium Chloride Mini Bag 100 ML IVPB SCH ×2 (04:50→18:43)
[2022-08-16] MEDS: Cholecalciferol (D-3) 1,000 UNIT (25MCG) TABLET PO SCH (07:47)
[2022-08-16] MEDS: Metoprolol XL (24 HR) Succ 50 MG TAB.ER.24H PO SCH ×2 (07:47→19:33)
[2022-08-16] MEDS: Multivit/Ca/Min/Fe/FA 1 TAB TABLET PO SCH (07:47)
[2022-08-16] MEDS: Aspirin Enteric Coated 81 MG Tablet PO SCH (07:47)
[2022-08-16] MEDS: Gabapentin 100 MG CAPSULE PO SCH ×2 (07:47→19:33)
[2022-08-16] MEDS: calcitrioL 0.25 MCG CAPSULE PO SCH (07:47)
[2022-08-16] MEDS: Piperacillin/Tazobactam 3.375 GM in 0.9 % Sodium Chloride Mini Bag 100 ML IVPB SCH ×2 (07:47→17:01)
[2022-08-16] MEDS: hydrALAZINE 25 MG TABLET PO SCH ×2 (07:47→17:01)
[2022-08-16] MEDS: Heparin 25,000UNIT/250ML 1/2NS 25,000 UNIT/250 ML IV.SOLN IVC SCH (11:04)
[2022-08-16] MEDS: *HR* LORazepam 1 MG TABLET PO PRN (19:33)
[2022-08-16] MEDS: Acetaminophen 325 MG TABLET PO PRN (20:16)
[2022-08-17] MEDS: Piperacillin/Tazobactam 3.375 GM in 0.9 % Sodium Chloride Mini Bag 100 ML IVPB SCH ×3 (00:01→20:52)
[2022-08-17] MEDS: hydrALAZINE 25 MG TABLET PO SCH ×4 (00:02→23:42)
[2022-08-17] MEDS: Doxycycline 100 MG in 0.9 % Sodium Chloride Mini Bag 100 ML IVPB SCH ×2 (04:42→20:53)
[2022-08-17] MEDS: Heparin 25,000UNIT/250ML 1/2NS 25,000 UNIT/250 ML IV.SOLN IVC SCH (04:43)
[2022-08-17 05:14] LABS: Basophils # 0.1 K/mcL (0.0-0.2); Basophils % 0.5 %; Eosinophils # 0.2 K/mcL (0.0-0.6); Hematocrit 42.1 % (35.3-44.9); Hemoglobin 12.4 g/dL (11.5-15.4); Immature Granulocytes % 0.6 % (0-4); Lymphocytes # 0.3 K/mcL (0.6-4.6); Lymphocytes % 2.7 %; Mean Corpuscular HGB Conc 29.5 g/dL (31.6-35.5); Mean Corpuscular Volume 101.7 fL (83.0-100.0); Mean Platelet Volume 9.6 fL (9.4-12.4); Monocytes # 0.9 K/mcL (0.0-1.3); Neutrophils # 9.3 K/mcL (1.6-8.9); Platelet Count 169 K/mcL (140-400); Red Blood Count 4.14 M/mcL (3.82-4.97); Red Cell Distribution Width 16.2 % (11.5-14.5); Segmented Neutrophils % 86.2 %; White Blood Count 10.8 K/mcL (4.3-11.1)
[2022-08-17 05:32] LABS: Calcium 8.7 mg/dL (8.6-10.3); Magnesium 1.8 mg/dL (1.6-2.6); Potassium 3.6 mEq/L (3.5-5.1)
[2022-08-17] MEDS: *HR* Heparin 5,000 UNIT/ML VIAL IVP PRN (05:32)
[2022-08-17] MEDS ORDERED: 0.9 % Sodium Chloride 250 ML IVC PRN (08:02)
[2022-08-17] MEDS ORDERED: *HR* Heparin 10,000 UNIT/10 ML VIAL IV PRN ×2 (08:02)
[2022-08-17] MEDS ORDERED: 0.9 % Sodium Chloride 2,000 ML PRIME SCH (08:15)
[2022-08-17] MEDS: Metoprolol XL (24 HR) Succ 50 MG TAB.ER.24H PO SCH ×2 (08:42→20:52)
[2022-08-17] MEDS: calcitrioL 0.25 MCG CAPSULE PO SCH (08:42)
[2022-08-17] MEDS: Cholecalciferol (D-3) 1,000 UNIT (25MCG) TABLET PO SCH (08:42)
[2022-08-17] MEDS: Multivit/Ca/Min/Fe/FA 1 TAB TABLET PO SCH (08:42)
[2022-08-17] MEDS: Aspirin Enteric Coated 81 MG Tablet PO SCH (08:42)
[2022-08-17] MEDS: Gabapentin 100 MG CAPSULE PO SCH ×2 (08:42→20:53)
[2022-08-17] MEDS ORDERED: Lidocaine/EPI 1:100k 1% 50 ML VIAL ONE (11:00)
[2022-08-17] MEDS ORDERED: Heparin 1,000 UNITS/500 mL 500 ML ONE (11:00)
[2022-08-17] MEDS ORDERED: *HR* Heparin 5,000 UNIT/ML VIAL ONE (11:11)
[2022-08-17 13:39] LABS: Hepatitis B Surface Antibody < 3.10 mIU/mL
[2022-08-17 13:50] LABS: Hepatitis B Surface Antigen Nonreactive (Nonreactive)
[2022-08-18 03:15] LABS: Basophils # 0.1 K/mcL (0.0-0.2); Basophils % 0.7 %; Eosinophils # 0.2 K/mcL (0.0-0.6); Eosinophils % 1.5 %; Hematocrit 42.9 % (35.3-44.9); Hemoglobin 13.3 g/dL (11.5-15.4); Immature Granulocytes % 0.6 % (0-4); Lymphocytes # 0.2 K/mcL (0.6-4.6); Mean Corpuscular Hemoglobin 30.6 pg (28.0-33.3); Mean Corpuscular Volume 98.8 fL (83.0-100.0); Mean Platelet Volume 10.2 fL (9.4-12.4); Monocytes # 0.8 K/mcL (0.0-1.3); Monocytes % 7.5 %; Neutrophils # 9.4 K/mcL (1.6-8.9); Nucleated Red Blood Cells 0.2 /100 WBC (0); Platelet Count 192 K/mcL (140-400); Red Blood Count 4.34 M/mcL (3.82-4.97); Red Cell Distribution Width 16.1 % (11.5-14.5); Segmented Neutrophils % 87.7 %; White Blood Count 10.7 K/mcL (4.3-11.1)
[2022-08-18 03:31] LABS: Calcium 9.4 mg/dL (8.6-10.3); Magnesium 1.9 mg/dL (1.6-2.6); Phosphorous 6.2 mg/dL (2.7-4.5)
[2022-08-18] MEDS: Doxycycline 100 MG in 0.9 % Sodium Chloride Mini Bag 100 ML IVPB SCH ×2 (05:22→17:27)
[2022-08-18] MEDS: Heparin 25,000UNIT/250ML 1/2NS 25,000 UNIT/250 ML IV.SOLN IVC SCH (06:14)
[2022-08-18] MEDS: Aspirin Enteric Coated 81 MG Tablet PO SCH (09:09)
[2022-08-18] MEDS: calcitrioL 0.25 MCG CAPSULE PO SCH (09:09)
[2022-08-18] MEDS: hydrALAZINE 25 MG TABLET PO SCH ×2 (09:09→16:13)
[2022-08-18] MEDS: Multivit/Ca/Min/Fe/FA 1 TAB TABLET PO SCH (09:09)
[2022-08-18] MEDS: Cholecalciferol (D-3) 1,000 UNIT (25MCG) TABLET PO SCH (09:09)
[2022-08-18] MEDS: Metoprolol XL (24 HR) Succ 50 MG TAB.ER.24H PO SCH ×2 (09:09→21:56)
[2022-08-18] MEDS: Gabapentin 100 MG CAPSULE PO SCH ×2 (09:09→21:56)
[2022-08-18] MEDS: Piperacillin/Tazobactam 3.375 GM in 0.9 % Sodium Chloride Mini Bag 100 ML IVPB SCH ×3 (09:12→21:56)
[2022-08-18] MEDS ORDERED: *HR* Heparin 10,000 UNIT/10 ML VIAL IV PRN (09:20)
[2022-08-18] MEDS ORDERED: 0.9 % Sodium Chloride 250 ML IVC PRN (09:20)
[2022-08-18] MEDS: Acetaminophen 325 MG TABLET PO PRN (21:56)
[2022-08-19] MEDS: hydrALAZINE 25 MG TABLET PO SCH ×4 (00:42→23:36)
[2022-08-19] MEDS: *HR* LORazepam 1 MG TABLET PO PRN (00:42)
[2022-08-19] MEDS: Heparin 25,000UNIT/250ML 1/2NS 25,000 UNIT/250 ML IV.SOLN IVC SCH ×2 (01:23→19:25)
[2022-08-19 04:25] LABS: Basophils % 0.4 %; Eosinophils # 0.2 K/mcL (0.0-0.6); Eosinophils % 1.5 %; Hematocrit 43.1 % (35.3-44.9); Hemoglobin 13.7 g/dL (11.5-15.4); Immature Granulocytes % 0.4 % (0-4); Lymphocytes # 0.4 K/mcL (0.6-4.6); Mean Corpuscular HGB Conc 31.8 g/dL (31.6-35.5); Mean Corpuscular Hemoglobin 31.1 pg (28.0-33.3); Mean Corpuscular Volume 97.7 fL (83.0-100.0); Mean Platelet Volume 10.2 fL (9.4-12.4); Monocytes # 0.9 K/mcL (0.0-1.3); Monocytes % 9.1 %; Neutrophils # 8.4 K/mcL (1.6-8.9); Platelet Count 197 K/mcL (140-400); Red Blood Count 4.41 M/mcL (3.82-4.97); Red Cell Distribution Width 15.9 % (11.5-14.5); Segmented Neutrophils % 84.6 %
[2022-08-19 04:43] LABS: Calcium 9.6 mg/dL (8.6-10.3); Phosphorous 5.7 mg/dL (2.7-4.5); Potassium 3.9 mEq/L (3.5-5.1)
[2022-08-19] MEDS: Doxycycline 100 MG in 0.9 % Sodium Chloride Mini Bag 100 ML IVPB SCH ×2 (06:51→18:17)
[2022-08-19] MEDS: Multivit/Ca/Min/Fe/FA 1 TAB TABLET PO SCH (09:26)
[2022-08-19] MEDS: Aspirin Enteric Coated 81 MG Tablet PO SCH (09:26)
[2022-08-19] MEDS: calcitrioL 0.25 MCG CAPSULE PO SCH (09:26)
[2022-08-19] MEDS: Metoprolol XL (24 HR) Succ 50 MG TAB.ER.24H PO SCH ×2 (09:26→20:15)
[2022-08-19] MEDS: Cholecalciferol (D-3) 1,000 UNIT (25MCG) TABLET PO SCH (09:27)
[2022-08-19] MEDS: Gabapentin 100 MG CAPSULE PO SCH ×2 (09:27→20:15)
[2022-08-19] MEDS ORDERED: 0.9 % Sodium Chloride 250 ML IVC PRN (10:02)
[2022-08-19] MEDS ORDERED: *HR* Heparin 10,000 UNIT/10 ML VIAL IV PRN (10:02)
[2022-08-19] MEDS: Piperacillin/Tazobactam 3.375 GM in 0.9 % Sodium Chloride Mini Bag 100 ML IVPB SCH ×2 (10:23→20:15)
[2022-08-19] MEDS ORDERED: Saline Nasal Spray 44 ML BOTTLE NS PRN (18:18)
[2022-08-20] MEDS: Acetaminophen 325 MG TABLET PO PRN (06:08)
[2022-08-20 06:29] LABS: Calcium 9.7 mg/dL (8.6-10.3); Magnesium 2.1 mg/dL (1.6-2.6); Potassium 3.7 mEq/L (3.5-5.1)
[2022-08-20 06:35] LABS: Basophils # 0.1 K/mcL (0.0-0.2); Basophils % 0.7 %; Eosinophils # 0.3 K/mcL (0.0-0.6); Eosinophils % 2.7 %; Hematocrit 44.1 % (35.3-44.9); Hemoglobin 13.6 g/dL (11.5-15.4); Immature Granulocytes % 0.4 % (0-4); Lymphocytes # 0.5 K/mcL (0.6-4.6); Mean Corpuscular HGB Conc 30.8 g/dL (31.6-35.5); Mean Corpuscular Hemoglobin 30.5 pg (28.0-33.3); Mean Corpuscular Volume 98.9 fL (83.0-100.0); Mean Platelet Volume 10.4 fL (9.4-12.4); Monocytes # 1.1 K/mcL (0.0-1.3); Monocytes % 10.2 %; Neutrophils # 8.3 K/mcL (1.6-8.9); Platelet Count 207 K/mcL (140-400); Red Blood Count 4.46 M/mcL (3.82-4.97); Red Cell Distribution Width 15.8 % (11.5-14.5); White Blood Count 10.3 K/mcL (4.3-11.1)
[2022-08-20] MEDS: Gabapentin 100 MG CAPSULE PO SCH ×2 (08:25→20:41)
[2022-08-20] MEDS: Cholecalciferol (D-3) 1,000 UNIT (25MCG) TABLET PO SCH (08:25)
[2022-08-20] MEDS: Aspirin Enteric Coated 81 MG Tablet PO SCH (08:25)
[2022-08-20] MEDS: Metoprolol XL (24 HR) Succ 50 MG TAB.ER.24H PO SCH ×2 (08:25→20:41)
[2022-08-20] MEDS: Multivit/Ca/Min/Fe/FA 1 TAB TABLET PO SCH (08:25)
[2022-08-20] MEDS: hydrALAZINE 25 MG TABLET PO SCH ×2 (08:26→16:29)
[2022-08-20] MEDS: calcitrioL 0.25 MCG CAPSULE PO SCH (08:26)
[2022-08-20] MEDS: Heparin 25,000UNIT/250ML 1/2NS 25,000 UNIT/250 ML IV.SOLN IVC SCH (14:50)
[2022-08-20 17:44] LABS: Hematocrit 44.7 % (35.3-44.9); Hemoglobin 13.7 g/dL (11.5-15.4)
[2022-08-21 05:58] LABS: Basophils # 0.1 K/mcL (0.0-0.2); Basophils % 0.7 %; Eosinophils # 0.4 K/mcL (0.0-0.6); Eosinophils % 3.8 %; Hematocrit 43.8 % (35.3-44.9); Hemoglobin 13.4 g/dL (11.5-15.4); Immature Granulocytes % 0.7 % (0-4); Lymphocytes # 0.4 K/mcL (0.6-4.6); Lymphocytes % 3.8 %; Mean Corpuscular HGB Conc 30.6 g/dL (31.6-35.5); Mean Corpuscular Hemoglobin 30.7 pg (28.0-33.3); Mean Corpuscular Volume 100.5 fL (83.0-100.0); Monocytes % 8.5 %; Neutrophils # 9.6 K/mcL (1.6-8.9); Platelet Count 201 K/mcL (140-400); Red Blood Count 4.36 M/mcL (3.82-4.97); Red Cell Distribution Width 15.8 % (11.5-14.5); Segmented Neutrophils % 82.5 %; White Blood Count 11.6 K/mcL (4.3-11.1)
[2022-08-21 06:19] LABS: Calcium 9.4 mg/dL (8.6-10.3); Magnesium 2.2 mg/dL (1.6-2.6); Phosphorous 6.7 mg/dL (2.7-4.5); Potassium 3.9 mEq/L (3.5-5.1)
[2022-08-21] MEDS: Cholecalciferol (D-3) 1,000 UNIT (25MCG) TABLET PO SCH (08:22)
[2022-08-21] MEDS: Multivit/Ca/Min/Fe/FA 1 TAB TABLET PO SCH (08:22)
[2022-08-21] MEDS: Gabapentin 100 MG CAPSULE PO SCH ×2 (08:22→21:07)
[2022-08-21] MEDS: calcitrioL 0.25 MCG CAPSULE PO SCH (08:23)
[2022-08-21] MEDS: hydrALAZINE 25 MG TABLET PO SCH ×3 (08:23→10:29)
[2022-08-21] MEDS: Aspirin Enteric Coated 81 MG Tablet PO SCH (08:23)
[2022-08-21] MEDS: Metoprolol XL (24 HR) Succ 50 MG TAB.ER.24H PO SCH (08:23)
[2022-08-21] MEDS ORDERED: 0.9 % Sodium Chloride 250 ML IVC PRN (08:30)
[2022-08-21] MEDS ORDERED: *HR* Heparin 10,000 UNIT/10 ML VIAL IV PRN (08:30)
[2022-08-21] MEDS: Heparin 25,000UNIT/250ML 1/2NS 25,000 UNIT/250 ML IV.SOLN IVC SCH (08:45)
[2022-08-21] MEDS: Acetaminophen 325 MG TABLET PO PRN (09:40)
[2022-08-21] MEDS ORDERED: Albumin 25% 25gram/100mL 25 GM/100 ML IV.SOLN IVPB ONE (10:15)
[2022-08-21] MEDS: Norepinephrine 4 MG/254 ML IV.SOLN IVC SCH (14:58)
[2022-08-21 15:17] LABS: Hematocrit 42.9 % (35.3-44.9); Hemoglobin 12.8 g/dL (11.5-15.4)
[2022-08-22 03:56] LABS: Basophils # 0.1 K/mcL (0.0-0.2); Basophils % 0.6 %; Eosinophils # 0.3 K/mcL (0.0-0.6); Eosinophils % 2.2 %; Hematocrit 43.3 % (35.3-44.9); Hemoglobin 13.4 g/dL (11.5-15.4); Lymphocytes # 0.4 K/mcL (0.6-4.6); Mean Corpuscular HGB Conc 30.9 g/dL (31.6-35.5); Mean Corpuscular Hemoglobin 30.9 pg (28.0-33.3); Mean Corpuscular Volume 99.8 fL (83.0-100.0); Monocytes # 1.1 K/mcL (0.0-1.3); Monocytes % 8.8 %; Neutrophils # 10.6 K/mcL (1.6-8.9); Nucleated Red Blood Cells 0.2 /100 WBC (0); Platelet Count 221 K/mcL (140-400); Red Blood Count 4.34 M/mcL (3.82-4.97); Red Cell Distribution Width 15.8 % (11.5-14.5); Segmented Neutrophils % 84.4 %; White Blood Count 12.6 K/mcL (4.3-11.1)
[2022-08-22 04:30] LABS: Calcium 9.8 mg/dL (8.6-10.3); Magnesium 2.2 mg/dL (1.6-2.6); Phosphorous 7.3 mg/dL (2.7-4.5); Potassium 4.1 mEq/L (3.5-5.1)
[2022-08-22] MEDS ORDERED: *HR* Heparin 10,000 UNIT/10 ML VIAL IV PRN (07:36)
[2022-08-22] MEDS ORDERED: 0.9 % Sodium Chloride 250 ML IVC PRN (07:36)
[2022-08-22] MEDS ORDERED: 0.9 % Sodium Chloride 2,000 ML PRIME SCH (07:45)
[2022-08-22] MEDS: Aspirin Enteric Coated 81 MG Tablet PO SCH (08:38)
[2022-08-22] MEDS: calcitrioL 0.25 MCG CAPSULE PO SCH (08:39)
[2022-08-22] MEDS: Gabapentin 100 MG CAPSULE PO SCH ×2 (08:39→20:21)
[2022-08-22] MEDS: Multivit/Ca/Min/Fe/FA 1 TAB TABLET PO SCH (08:39)
[2022-08-22] MEDS: Cholecalciferol (D-3) 1,000 UNIT (25MCG) TABLET PO SCH (08:39)
[2022-08-22] MEDS: Norepinephrine 4 MG/254 ML IV.SOLN IVC SCH (14:03)
[2022-08-22] MEDS: Heparin 25,000UNIT/250ML 1/2NS 25,000 UNIT/250 ML IV.SOLN IVC SCH (18:55)
[2022-08-22] MEDS: *HR* LORazepam 1 MG TABLET PO PRN (20:21)
[2022-08-23 01:13] LABS: Basophils # 0.1 K/mcL (0.0-0.2); Basophils % 0.6 %; Eosinophils # 0.3 K/mcL (0.0-0.6); Eosinophils % 2.6 %; Hematocrit 43.1 % (35.3-44.9); Hemoglobin 13.3 g/dL (11.5-15.4); Immature Granulocytes % 1.6 % (0-4); Lymphocytes # 0.4 K/mcL (0.6-4.6); Mean Corpuscular HGB Conc 30.9 g/dL (31.6-35.5); Mean Corpuscular Hemoglobin 30.7 pg (28.0-33.3); Mean Corpuscular Volume 99.5 fL (83.0-100.0); Mean Platelet Volume 9.6 fL (9.4-12.4); Monocytes # 1.1 K/mcL (0.0-1.3); Monocytes % 8.6 %; Neutrophils # 10.5 K/mcL (1.6-8.9); Nucleated Red Blood Cells 0.2 /100 WBC (0); Platelet Count 203 K/mcL (140-400); Red Blood Count 4.33 M/mcL (3.82-4.97); Red Cell Distribution Width 15.9 % (11.5-14.5); Segmented Neutrophils % 83.6 %; White Blood Count 12.6 K/mcL (4.3-11.1)
[2022-08-23 01:34] LABS: Calcium 9.6 mg/dL (8.6-10.3); Phosphorous 5.1 mg/dL (2.7-4.5)
[2022-08-23] MEDS: Norepinephrine 4 MG/254 ML IV.SOLN IVC SCH (01:44)
[2022-08-23] MEDS: Cholecalciferol (D-3) 1,000 UNIT (25MCG) TABLET PO SCH (08:11)
[2022-08-23] MEDS: Gabapentin 100 MG CAPSULE PO SCH ×2 (08:11→21:03)
[2022-08-23] MEDS: calcitrioL 0.25 MCG CAPSULE PO SCH (08:12)
[2022-08-23] MEDS: Aspirin Enteric Coated 81 MG Tablet PO SCH (08:12)
[2022-08-23] MEDS: Multivit/Ca/Min/Fe/FA 1 TAB TABLET PO SCH (08:12)
[2022-08-23] MEDS: Furosemide 40 MG TABLET PO SCH (12:51)
[2022-08-23] MEDS: *HR* Heparin 5,000 UNIT/ML VIAL SQ SCH (18:34)
[2022-08-23] MEDS: *HR* LORazepam 1 MG TABLET PO PRN (21:03)
[2022-08-24 04:11] LABS: Hematocrit 42.1 % (35.3-44.9); Hemoglobin 12.9 g/dL (11.5-15.4); Mean Corpuscular HGB Conc 30.6 g/dL (31.6-35.5); Mean Corpuscular Hemoglobin 30.3 pg (28.0-33.3); Mean Corpuscular Volume 98.8 fL (83.0-100.0); Mean Platelet Volume 10.2 fL (9.4-12.4); Platelet Count 231 K/mcL (140-400); Red Blood Count 4.26 M/mcL (3.82-4.97); Red Cell Distribution Width 15.9 % (11.5-14.5); White Blood Count 11.9 K/mcL (4.3-11.1)
[2022-08-24 04:30] LABS: Calcium 9.9 mg/dL (8.6-10.3); Potassium 4.4 mEq/L (3.5-5.1)
[2022-08-24] MEDS: Metoprolol XL (24 HR) Succ 50 MG TAB.ER.24H PO SCH ×2 (05:40→21:05)
[2022-08-24] MEDS: *HR* Heparin 5,000 UNIT/ML VIAL SQ SCH ×3 (05:41→17:10)
[2022-08-24] MEDS ORDERED: 0.9 % Sodium Chloride 250 ML IVC PRN (07:31)
[2022-08-24] MEDS ORDERED: 0.9 % Sodium Chloride 2,000 ML PRIME SCH (07:45)
[2022-08-24] MEDS ORDERED: *HR* Heparin 10,000 UNIT/10 ML VIAL IV PRN (12:04)
[2022-08-24] MEDS: Aspirin Enteric Coated 81 MG Tablet PO SCH (14:27)
[2022-08-24] MEDS: Furosemide 40 MG TABLET PO SCH (14:27)
[2022-08-24] MEDS: Cholecalciferol (D-3) 1,000 UNIT (25MCG) TABLET PO SCH (14:27)
[2022-08-24] MEDS: calcitrioL 0.25 MCG CAPSULE PO SCH (14:27)
[2022-08-24] MEDS: Gabapentin 100 MG CAPSULE PO SCH ×2 (14:28→21:05)
[2022-08-24] MEDS: Multivit/Ca/Min/Fe/FA 1 TAB TABLET PO SCH (14:29)
[2022-08-24] MEDS: *HR* LORazepam 1 MG TABLET PO PRN (21:05)
[2022-08-25 04:15] LABS: Basophils # 0.1 K/mcL (0.0-0.2); Basophils % 0.6 %; Eosinophils # 0.2 K/mcL (0.0-0.6); Eosinophils % 2.2 %; Hematocrit 38.8 % (35.3-44.9); Hemoglobin 12.1 g/dL (11.5-15.4); Immature Granulocytes % 1.5 % (0-4); Lymphocytes # 0.4 K/mcL (0.6-4.6); Lymphocytes % 3.7 %; Mean Corpuscular HGB Conc 31.2 g/dL (31.6-35.5); Mean Corpuscular Hemoglobin 30.8 pg (28.0-33.3); Mean Corpuscular Volume 98.7 fL (83.0-100.0); Mean Platelet Volume 10.3 fL (9.4-12.4); Monocytes # 1.2 K/mcL (0.0-1.3); Monocytes % 10.9 %; Neutrophils # 8.8 K/mcL (1.6-8.9); Nucleated Red Blood Cells 0.2 /100 WBC (0); Platelet Count 237 K/mcL (140-400); Red Blood Count 3.93 M/mcL (3.82-4.97); Red Cell Distribution Width 15.8 % (11.5-14.5); Segmented Neutrophils % 81.1 %; White Blood Count 10.8 K/mcL (4.3-11.1)
[2022-08-25 04:33] LABS: Albumin 3.1 g/dL (3.5-5.7); Albumin/Globulin Ratio 1.3 (1.1-2.2); Bilirubin,Direct 0.2 mg/dL (0.0-0.2); Bilirubin,Indirect 0.4 mg/dL (0.0-1.0); Bilirubin,Total 0.6 mg/dL (0.3-1.0); Calcium 9.2 mg/dL (8.6-10.3); Globulin 2.4 g/dL (2.4-3.5); Potassium 4.1 mEq/L (3.5-5.1); Total Protein 5.5 g/dL (6.4-8.9)
[2022-08-25] MEDS: *HR* Heparin 5,000 UNIT/ML VIAL SQ SCH ×2 (05:30→23:15)
[2022-08-25] MEDS: Aspirin Enteric Coated 81 MG Tablet PO SCH (09:02)
[2022-08-25] MEDS: Cholecalciferol (D-3) 1,000 UNIT (25MCG) TABLET PO SCH (09:02)
[2022-08-25] MEDS: Gabapentin 100 MG CAPSULE PO SCH ×2 (09:02→21:33)
[2022-08-25] MEDS: Metoprolol XL (24 HR) Succ 50 MG TAB.ER.24H PO SCH ×2 (09:03→21:33)
[2022-08-25] MEDS: calcitrioL 0.25 MCG CAPSULE PO SCH (09:03)
[2022-08-25] MEDS: Furosemide 40 MG TABLET PO SCH (09:06)
[2022-08-25] MEDS: Multivit/Ca/Min/Fe/FA 1 TAB TABLET PO SCH (09:06)
[2022-08-25] MEDS ORDERED: Furosemide 20 MG/2 ML VIAL IVP ONE (09:57)
[2022-08-25] MEDS: *HR* LORazepam 1 MG TABLET PO PRN (21:33)
[2022-08-26 05:57] LABS: Hematocrit 40.3 % (35.3-44.9); Hemoglobin 12.6 g/dL (11.5-15.4); Mean Corpuscular HGB Conc 31.3 g/dL (31.6-35.5); Mean Corpuscular Hemoglobin 30.6 pg (28.0-33.3); Mean Corpuscular Volume 97.8 fL (83.0-100.0); Mean Platelet Volume 10.1 fL (9.4-12.4); Platelet Count 249 K/mcL (140-400); Red Blood Count 4.12 M/mcL (3.82-4.97); Red Cell Distribution Width 15.7 % (11.5-14.5)
[2022-08-26 06:17] LABS: Calcium 9.8 mg/dL (8.6-10.3); Potassium 4.2 mEq/L (3.5-5.1)
[2022-08-26] MEDS: *HR* Heparin 5,000 UNIT/ML VIAL SQ SCH ×2 (06:22→18:22)
[2022-08-26] MEDS ORDERED: 0.9 % Sodium Chloride 250 ML IVC PRN (07:36)
[2022-08-26] MEDS ORDERED: Furosemide 40 MG TABLET PO SCH (09:00)
[2022-08-26] MEDS ORDERED: *HR* Heparin 10,000 UNIT/10 ML VIAL IV PRN (11:57)
[2022-08-26] MEDS: Aspirin Enteric Coated 81 MG Tablet PO SCH (13:55)
[2022-08-26] MEDS: Multivit/Ca/Min/Fe/FA 1 TAB TABLET PO SCH (13:55)
[2022-08-26] MEDS: calcitrioL 0.25 MCG CAPSULE PO SCH (13:56)
[2022-08-26] MEDS: Cholecalciferol (D-3) 1,000 UNIT (25MCG) TABLET PO SCH (13:56)
[2022-08-26] MEDS: Gabapentin 100 MG CAPSULE PO SCH ×2 (13:56→22:32)
[2022-08-26] MEDS: Metoprolol XL (24 HR) Succ 50 MG TAB.ER.24H PO SCH ×2 (14:07→22:32)
[2022-08-26] MEDS: *HR* LORazepam 1 MG TABLET PO PRN (22:32)
[2022-08-27] MEDS: *HR* Heparin 5,000 UNIT/ML VIAL SQ SCH ×2 (06:13→16:57)
[2022-08-27] MEDS: Gabapentin 100 MG CAPSULE PO SCH ×2 (08:48→21:47)
[2022-08-27] MEDS: Multivit/Ca/Min/Fe/FA 1 TAB TABLET PO SCH (08:48)
[2022-08-27] MEDS: Metoprolol XL (24 HR) Succ 50 MG TAB.ER.24H PO SCH ×2 (08:48→21:47)
[2022-08-27] MEDS: Aspirin Enteric Coated 81 MG Tablet PO SCH (08:48)
[2022-08-27] MEDS: Cholecalciferol (D-3) 1,000 UNIT (25MCG) TABLET PO SCH (08:48)
[2022-08-27] MEDS: calcitrioL 0.25 MCG CAPSULE PO SCH (08:48)
[2022-08-27] MEDS ORDERED: 0.9 % Sodium Chloride 250 ML IVC PRN (11:25)
[2022-08-27] MEDS ORDERED: *HR* FentaNYL (PF) 100 MCG/2 ML VIAL IVP ONE (11:54)
[2022-08-27] MEDS ORDERED: *HR* Midazolam HCl 2 MG/2 ML VIAL IVP ONE (11:54)
[2022-08-27] MEDS ORDERED: ceFAZolin 1,000 MG in 0.9 % Sodium Chloride Mini Bag 100 ML IVPB SCH (11:54)
[2022-08-27] MEDS ORDERED: Heparin 1,000 UNITS/500 mL 500 ML ONE (11:56)
[2022-08-27] MEDS ORDERED: Lidocaine/EPI 1:100k 1% 50 ML VIAL ONE (11:56)
[2022-08-27] MEDS ORDERED: 0.9 % Sodium Chloride 500 ML ONE (12:14)
[2022-08-27] MEDS ORDERED: *HR* Heparin 5,000 UNIT/ML VIAL ONE (12:29)
[2022-08-28] MEDS: *HR* Heparin 5,000 UNIT/ML VIAL SQ SCH ×2 (05:46→17:09)
[2022-08-28] MEDS: calcitrioL 0.25 MCG CAPSULE PO SCH (09:37)
[2022-08-28] MEDS: Metoprolol XL (24 HR) Succ 50 MG TAB.ER.24H PO SCH ×2 (09:37→19:48)
[2022-08-28] MEDS: Cholecalciferol (D-3) 1,000 UNIT (25MCG) TABLET PO SCH (09:37)
[2022-08-28] MEDS: Aspirin Enteric Coated 81 MG Tablet PO SCH (09:37)
[2022-08-28] MEDS: Gabapentin 100 MG CAPSULE PO SCH ×2 (09:38→19:48)
[2022-08-28] MEDS: Multivit/Ca/Min/Fe/FA 1 TAB TABLET PO SCH (09:38)
[2022-08-28 09:55] LABS: Calcium 9.5 mg/dL (8.6-10.3); Potassium 4.4 mEq/L (3.5-5.1)
[2022-08-28 10:18] LABS: Hematocrit 40.9 % (35.3-44.9); Hemoglobin 12.8 g/dL (11.5-15.4); Mean Corpuscular HGB Conc 31.3 g/dL (31.6-35.5); Mean Corpuscular Hemoglobin 30.3 pg (28.0-33.3); Mean Corpuscular Volume 96.7 fL (83.0-100.0); Platelet Count 295 K/mcL (140-400); Red Blood Count 4.23 M/mcL (3.82-4.97); Red Cell Distribution Width 15.7 % (11.5-14.5); White Blood Count 9.8 K/mcL (4.3-11.1)
[2022-08-28] MEDS: DilTIAZem CD (24hr) 120 MG CAP.ER.24H PO SCH (12:30)
[2022-08-29] MEDS: *HR* Heparin 5,000 UNIT/ML VIAL SQ SCH ×2 (06:39→17:30)
[2022-08-29] MEDS ORDERED: Iopamidol - 370 500 ML MLS IVP ONE (07:28)
[2022-08-29] MEDS: Cholecalciferol (D-3) 1,000 UNIT (25MCG) TABLET PO SCH (08:49)
[2022-08-29] MEDS: Aspirin Enteric Coated 81 MG Tablet PO SCH (08:49)
[2022-08-29] MEDS: calcitrioL 0.25 MCG CAPSULE PO SCH (08:49)
[2022-08-29] MEDS: Metoprolol XL (24 HR) Succ 50 MG TAB.ER.24H PO SCH ×2 (08:49→19:57)
[2022-08-29] MEDS: DilTIAZem CD (24hr) 120 MG CAP.ER.24H PO SCH (08:49)
[2022-08-29] MEDS: Multivit/Ca/Min/Fe/FA 1 TAB TABLET PO SCH (08:49)
[2022-08-29] MEDS: Gabapentin 100 MG CAPSULE PO SCH ×2 (08:49→19:57)
[2022-08-29] MEDS ORDERED: 0.9 % Sodium Chloride 250 ML IVC PRN (09:25)
[2022-08-29] MEDS ORDERED: *HR* Heparin 10,000 UNIT/10 ML VIAL IV PRN ×2 (09:25)
[2022-08-29 10:12] LABS: Calcium 9.9 mg/dL (8.6-10.3); Potassium 4.5 mEq/L (3.5-5.1)
[2022-08-30 05:47] LABS: Hematocrit 41.3 % (35.3-44.9); Mean Corpuscular HGB Conc 31.5 g/dL (31.6-35.5); Mean Corpuscular Hemoglobin 30.5 pg (28.0-33.3); Mean Corpuscular Volume 96.9 fL (83.0-100.0); Platelet Count 274 K/mcL (140-400); Red Blood Count 4.26 M/mcL (3.82-4.97); Red Cell Distribution Width 15.6 % (11.5-14.5)
[2022-08-30] MEDS: *HR* Heparin 5,000 UNIT/ML VIAL SQ SCH (05:49)
[2022-08-30 06:10] LABS: Calcium 9.5 mg/dL (8.6-10.3)
[2022-08-30] MEDS: Multivit/Ca/Min/Fe/FA 1 TAB TABLET PO SCH (08:12)
[2022-08-30] MEDS: Gabapentin 100 MG CAPSULE PO SCH ×2 (08:12→20:01)
[2022-08-30] MEDS: Cholecalciferol (D-3) 1,000 UNIT (25MCG) TABLET PO SCH (08:13)
[2022-08-30] MEDS: Metoprolol XL (24 HR) Succ 50 MG TAB.ER.24H PO SCH ×2 (08:13→20:01)
[2022-08-30] MEDS: Aspirin Enteric Coated 81 MG Tablet PO SCH (08:13)
[2022-08-30] MEDS: calcitrioL 0.25 MCG CAPSULE PO SCH (08:13)
[2022-08-30] MEDS: Sennosides 8.6 MG TABLET PO SCH (15:13)
[2022-08-30] MEDS: Apixaban 5 MG TABLET PO SCH (20:01)
[2022-08-31 04:55] LABS: Hematocrit 41.1 % (35.3-44.9); Hemoglobin 12.8 g/dL (11.5-15.4); Mean Corpuscular HGB Conc 31.1 g/dL (31.6-35.5); Mean Corpuscular Hemoglobin 30.4 pg (28.0-33.3); Mean Corpuscular Volume 97.6 fL (83.0-100.0); Mean Platelet Volume 9.7 fL (9.4-12.4); Platelet Count 254 K/mcL (140-400); Red Blood Count 4.21 M/mcL (3.82-4.97); Red Cell Distribution Width 15.6 % (11.5-14.5); White Blood Count 12.9 K/mcL (4.3-11.1)
[2022-08-31 05:20] LABS: Calcium 9.8 mg/dL (8.6-10.3); Potassium 4.1 mEq/L (3.5-5.1)
[2022-08-31] MEDS: Multivit/Ca/Min/Fe/FA 1 TAB TABLET PO SCH (09:04)
[2022-08-31] MEDS: Aspirin Enteric Coated 81 MG Tablet PO SCH (09:04)
[2022-08-31] MEDS: Cholecalciferol (D-3) 1,000 UNIT (25MCG) TABLET PO SCH (09:04)
[2022-08-31] MEDS: Metoprolol XL (24 HR) Succ 50 MG TAB.ER.24H PO SCH ×2 (09:05→20:57)
[2022-08-31] MEDS: calcitrioL 0.25 MCG CAPSULE PO SCH (09:05)
[2022-08-31] MEDS: Apixaban 5 MG TABLET PO SCH ×2 (09:05→20:57)
[2022-08-31] MEDS: Gabapentin 100 MG CAPSULE PO SCH ×2 (09:05→20:57)
[2022-08-31] MEDS: Sennosides 8.6 MG TABLET PO SCH (09:05)
[2022-08-31 21:40] VITALS: BP 131/93; PULSE 94; TEMP 97.6; O2SAT 92
[2022-09-01] MEDS ORDERED: 0.9 % Sodium Chloride 250 ML IVC PRN (08:02)
[2022-09-01] MEDS ORDERED: *HR* Heparin 10,000 UNIT/10 ML VIAL IV PRN ×2 (08:02)
== END 2022-08-31 23:59 | disposition other institution (70) | DRG 682 ==
LOC: EMEROOARM 11:43 → SUATTDRO 17:50 → 2NNU 17:50 → 2ANU 08-26 17:13
PROVIDERS: ADMIT Hospitalist; ATTEND Internal Medicine
PROC: IRPERMA (2022-08-27 12:00)